=== PATIENT | male | born 2005 | race African-American/Black ===

== ENCOUNTER 2023-05-11 20:02 | Emergency (ER) | payer OTHER ==
[~2023-05-11] VITALS: Ht 172.7 cm; Wt 72.7 kg
[~2023-05-11 20:02] MED LIST: NOCURR
[2023-05-11 20:14] VITALS: BP 118/60; PULSE 73; RESP 16; TEMP 98.6
== END 2023-05-11 21:06 | disposition left against medical advice (07) ==
LOC: EMS 20:05
DX: L08.9 Local infection of the skin and subcutaneous tissue, unspecified (principal); Z53.21 Procedure and treatment not carried out due to patient leaving prior to being seen by health care provider
CPT/HCPCS: 99281; Z7502